=== PATIENT | female | born 1950 | race Caucasian/White ===

== ENCOUNTER 2018-04-03 07:31 | Day surgery (SDC) | payer MEDICARE ==
[~2018-04-03 07:31] MED LIST: Lactated Ringers 1,000 ML IV SCH; Sodium Chloride 0.9% 10 ML Syringe FLUSH PRN; cefOXitin 2 GM in Sodium Chloride 0.9% 100 ML IV ONE
[2018-04-03] MEDS ORDERED: cefOXitin 2 GM Vial IVPUSH ONE (08:00)
[2018-04-03] MEDS ORDERED: Hetastarch in NS 500 ML IV ONE (09:00)
[2018-04-03] MEDS ORDERED: Sugammadex Sodium 200 MG/2 ML VIAL IV ONE (09:00)
[2018-04-03] MEDS ORDERED: Rocuronium 100 MG/10 ML MDV IV ONE (09:00)
[2018-04-03] MEDS ORDERED: Lactated Ringers 1,000 ML IV ONE (09:00)
[2018-04-03] MEDS ORDERED: ePHEDrine 50 MG/ML SDV IV ONE (09:00)
[2018-04-03] MEDS ORDERED: Glycopyrrolate 0.2 MG/ML 5 ML MDV IV ONE (09:00)
[2018-04-03] MEDS ORDERED: Ketorolac 30 MG/ML SDV IVPUSH ONE (09:00)
[2018-04-03] MEDS ORDERED: Midazolam 1 MG/ML 2 ML SDV IV ONE (09:00)
[2018-04-03] MEDS ORDERED: fentaNYL 100 MCG/2 ML SDV IV ONE (09:00)
[2018-04-03] MEDS ORDERED: Propofol 200 MG/20 ML SDV IV ONE (09:00)
[2018-04-03] MEDS ORDERED: Succinylcholine 200 MG/10 ML MDV IV ONE (09:00)
[2018-04-03] MEDS ORDERED: Ondansetron 4 MG/2 ML SDV IVPUSH ONE (09:00)
[2018-04-03] MEDS ORDERED: Dexamethasone 4 MG/ML 5 ML MDV IVPUSH ONE (09:00)
[2018-04-03] MEDS ORDERED: Lidocaine 2% 100 MG/5 ML Syringe IVPUSH ONE (09:00)
[2018-04-03] MEDS ORDERED: Lidocaine 1% with EPINEPHrine 1:100,000 20 ML MDV ONE (09:26)
[2018-04-03] MEDS ORDERED: Bupivacaine 0.5% 30 ML SDV ONE (09:26)
--- NOTE | 2018-04-03 09:56 | PCM.OPNOTE ---
- General Post-Op/Procedure Note Date of Surgery/Procedure: 04/03/18 Operative Procedure(s): lap cholecystectomy Findings: critical view obtained fatty liver noted. Pre Op Diagnosis: sx gallstones Post-Op Diagnosis: Same Anesthesia Technique: General ET Tube, Local (7 ml 1 % lido with epi/0.5% buvipicaine) Primary Surgeon: Chris Hancock Anesthesia Provider: Erica Sherman Pathology: gallbladder and contents Complications: None Condition: Good Free Text/Narrative:: see dictation
--- NOTE | 2018-04-03 10:22 | OR ---
DATE OF OPERATION: 04/03/2018 SURGEON: Chris Hancock MD PROCEDURE PERFORMED: Laparoscopic cholecystectomy. PREOPERATIVE DIAGNOSIS: Symptomatic cholelithiasis without obstruction or infection. POSTOPERATIVE DIAGNOSIS: Symptomatic cholelithiasis without obstruction or infection. INDICATIONS FOR PROCEDURE: This is a 68-year-old white female who is referred with right upper quadrant abdominal pain and findings of gallstones. Her history and exam were consistent with symptomatic cholelithiasis. She was offered and accepted a laparoscopic cholecystectomy. DESCRIPTION OF PROCEDURE: After an excellent general anesthetic was administered via endotracheal tube, the patient was prepped and draped in usual sterile manner. A grand total of 7 mL of 1:1 mixture of 1% lidocaine with epinephrine and 0.5% bupivacaine was used to infiltrate our trocar sites. We started at the level of approximately 2 cm above the umbilicus. Small incision was then made with a #15 scalpel blade. Blunt dissection was carried out exposing the midline fascia. Two stay sutures of 0 Vicryl were placed on the inside of the midline. The fascia was incised, and the abdominal cavity was entered sharply. After digital palpation to ensure no adhesions, 10.5 mm Elizabeth trocar was inserted. The patient's abdomen was insufflated to 15 mmHg. When using carbon dioxide, the patient was then placed in reverse Trendelenburg with an airplane to the left. Three 5 mm ports were placed, 1 in the midline epigastrium and 2 below the right costal margin at the approximate level of the midclavicular and anterior axillary line. The gallbladder was grasped and retracted in a cephalad fashion. The infundibulum was grasped and retracted. Blunt dissection was carried out exposing the cystic duct and cystic artery. After obtaining the critical view, 2 clips were placed proximally on both these structures and 1 distally and transected. L-hook cautery dissection was used to dissect the gallbladder from the gallbladder fossa. Specimen was passed to the specimen bag and delivered out through the umbilical port. The area was irrigated. After ensuring excellent hemostasis, the trocars were removed under direct visualization. The periumbilical incision was closed with a figure-of- eight 0 Vicryl. Buchanan were used to close the skin. Needle, sponge, and instrument counts were reported as correct. The patient was taken to recovery room in good condition. /[id number] COOKIE/ARIS
[2018-04-03] MEDS ORDERED: Acetaminophen/HYDROcodone 325-5 MG Tab PO ONE (10:51)
== END 2018-04-03 11:39 | disposition home or self-care (01) ==
LOC: FB.SDS 07:31
PROVIDERS: ATTEND Surgery
DX: K80.10 Calculus of gallbladder with chronic cholecystitis without obstruction (principal); I10 Essential (primary) hypertension; E11.9 Type 2 diabetes mellitus without complications; E66.9 Obesity, unspecified; Z68.38 Body mass index [BMI] 38.0-38.9, adult; E03.9 Hypothyroidism, unspecified; Z87.891 Personal history of nicotine dependence; Z79.84 Long term (current) use of oral hypoglycemic drugs; Z79.899 Other long term (current) drug therapy; Z88.0 Allergy status to penicillin
CPT/HCPCS: 00790; 47562; 82962; 88304; A9270; C9399; J0330; J0694; J1100; J1885; J2001; J2250; J2405; J2704; J3010; J3490; J7120

== ENCOUNTER 2020-02-27 02:45 | Observation (INO) | payer MEDICARE ==
[2020-02-27] MEDS ORDERED: Sodium Chloride 0.9% 10 ML Syringe FLUSH PRN (03:21)
[2020-02-27] MEDS ORDERED: Atropine/Diphenoxylate 0.025-2.5 MG Tab PO ONE (03:26)
[2020-02-27] MEDS ORDERED: Ondansetron 4 MG/2 ML SDV IVPUSH ONE (03:36)
--- NOTE | 2020-02-27 03:49 | EDM.PDOC ---
ED HPI GENERAL MEDICAL PROBLEM - General Chief Complaint: Gastrointestinal Problem Stated Complaint: ABDOMINAL PAIN Time Seen by Provider: 02/27/20 02:50 Source of Information: Reports: Patient, Family History Limitations: Reports: No Limitations - History of Present Illness INITIAL COMMENTS - FREE TEXT/NARRATIVE: Patient presented to the ED because of N/V/D for the past 6 days. The diarrhea is mostly watery, non-bloody, non-mucoid. There is no associated fever/chills, cough or cold symptoms. There is no recent use of antibiotics. She jhas been to the clinic twice this week for IVF hydration but she still couldn't keep anything down. 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 - Related Data Allergies Allergy/AdvReac Type Severity Reaction Status Date / Time Penicillins Allergy Hives Verified 02/27/20 03:04 Home Meds: Home Meds Levothyroxine 112 mcg PO DAILY 04/02/18 [History] Verapamil [Calan] 120 mg PO BEDTIME 04/02/18 [History] metFORMIN [Glucophage] 850 mg PO BIDMEALS 04/02/18 [History] Aspirin 162 mg PO BEDTIME 02/27/20 [History] Cholestyramine/Sucrose [Cholestyramine] 4 gm DAILY 02/27/20 [History] Docusate Sodium [Colace] 100 mg PO BID PRN 02/27/20 [History] Losartan [Cozaar] 50 mg PO BEDTIME 02/27/20 [History] Ondansetron [Zofran ODT] 4 mg Q4H PRN 02/27/20 [History] Past Medical History HEENT History: Reports: Impaired Vision Cardiovascular History: Reports: Hypertension Respiratory History: Reports: None Gastrointestinal History: Reports: Colon Polyp Genitourinary History: Reports: None 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: Musculoskeletal History: Reports: Fracture Neurological History: Reports: None Psychiatric History: Reports: None Endocrine/Metabolic History: Reports: Diabetes, Type II, Hypothyroidism Hematologic History: Reports: None Immunologic History: Reports: None Oncologic (Cancer) History: Reports: None Dermatologic History: Reports: None - Past Surgical History Head Surgeries/Procedures: Reports: None HEENT Surgical History: Reports: None Cardiovascular Surgical History: Reports: None Respiratory Surgical History: Reports: None GI Surgical History: Reports: Colonoscopy Female Surgical History: Reports: None Endocrine Surgical History: Reports: None Neurological Surgical History: Reports: None Musculoskeletal Surgical History: Reports: None Oncologic Surgical History: Reports: None Dermatological Surgical History: Reports: None Social & Family History - Caffeine Use Caffeine Use: Reports: Coffee, Soda ED ROS GENERAL - Review of Systems Review Of Systems: See Below Constitutional: Reports: No Symptoms HEENT: Reports: No Symptoms Respiratory: Reports: No Symptoms Cardiovascular: Reports: No Symptoms Endocrine: Reports: No Symptoms GI/Abdominal: Reports: Diarrhea, Nausea, Vomiting. Denies: Abdominal Pain : Reports: No Symptoms Musculoskeletal: Reports: No Symptoms Skin: Reports: No Symptoms Neurological: Reports: No Symptoms Psychiatric: Reports: No Symptoms Hematologic/Lymphatic: Reports: No Symptoms ED EXAM, GI/ABD - Physical Exam Exam: See Below Exam Limited By: No Limitations General Appearance: Alert, No Apparent Distress Ears: Normal External Exam, Normal Canal Nose: Normal Inspection, Normal Mucosa Throat/Mouth: Normal Inspection, Normal Lips, Normal Teeth Head: Atraumatic, Normocephalic Neck: Normal Inspection, Supple, Non-Tender Respiratory/Chest: No Respiratory Distress, Lungs Clear, Normal Breath Sounds Cardiovascular: Normal Peripheral Pulses, No Edema, Tachycardia GI/Abdominal Exam: Soft, Non-Tender, No Distention, Abnormal Bowel Sounds. No: Guarding Back Exam: Normal Inspection, Full Range of Motion Extremities: Normal Inspection, Normal Range of Motion, Non-Tender Neurological: Alert, Oriented, CN II-XII Intact, Normal Cognition Psychiatric: Normal Affect Skin Exam: Warm Course - Vital Signs Text/Narrative:: Labs/EKG was reviewed with patient and her NS 1 L bolus Lomotil 2 tabs po x1 dose Zofran 4 mg IV x1 Verapamil 120 mg po x1 Last Recorded V/S: Last Vital Signs Temp 37.3 C 02/27/20 02:45 Pulse 118 H 02/27/20 02:45 Resp 26 H 02/27/20 02:45 BP 111/66 02/27/20 02:45 Pulse Ox 4 L 02/27/20 02:45 - Orders/Labs/Meds Orders: Active Orders 24 hr Category Date Time Status Patient Status [ADT] Routine ADT 02/27/20 03:52 Ordered EKG Documentation Completion [RC] ASDIRECTED Care 02/27/20 03:42 Active Height and Weight [RC] DAILY Care 02/27/20 03:52 Ordered Intake and Output [RC] QSHIFT Care 02/27/20 03:56 Ordered Oxygen Therapy [RC] PRN Care 02/27/20 03:52 Ordered Pulse Oximetry [RC] PRN Care 02/27/20 03:56 Ordered Up With Assistance [RC] ASDIRECTED Care 02/27/20 03:52 Ordered VTE/DVT Education [RC] Per Unit Routine Care 02/27/20 03:52 Ordered Vital Signs [RC] Q4H Care 02/27/20 03:52 Ordered Heart Healthy Diet [DIET] Diet 02/27/20 Breakfast Ordered C DIFFICILE AG/TOXIN W/REFLEX [RM] Stat Lab 02/27/20 03:23 Ordered OVA + PARASITE EXAM Stat Lab 02/27/20 03:23 Ordered STOOL CULTURE Stat Lab 02/27/20 03:23 Ordered UA W/MICROSCOPIC [URIN] Stat Lab 02/27/20 03:21 Ordered Atropine/Diphenoxylate [Lomotil 0.025-2.5 MG] Med 02/27/20 03:59 Ordered 2 tab PO QID PRN Cholestyramine/Sucrose [Cholestyramine Packet] Med 02/27/20 09:00 Ordered 4 gm PO DAILY Levothyroxine Med 02/27/20 09:00 Ordered 112 mcg PO DAILY Losartan [Cozaar] Med 02/27/20 21:00 Ordered 50 mg PO BEDTIME NS + KCl 20mEq/L [Normal Saline with 20 mEq KCl] 3,000 Med 02/27/20 04:00 Ordered ml IV ASDIRECTED Ondansetron [Zofran] Med 02/27/20 04:00 Ordered 4 mg IVPUSH Q4H Sodium Chloride 0.9% [Saline Flush] Med 02/27/20 03:21 Active 10 ml FLUSH ASDIRECTED PRN Verapamil [Calan] Med 02/27/20 21:00 Ordered 120 mg PO BEDTIME Saline Lock Insert [OM.PC] Routine Oth 02/27/20 03:21 Ordered Sequential Compression Device [OM.PC] Per Unit Routine Oth 02/27/20 03:57 Ordered Resuscitation Status Routine Resus Stat 02/27/20 03:52 Ordered EKG 12 Lead [EK] Routine Ther 02/27/20 03:41 Ordered Medication Orders Cholestyramine Resin (Cholestyramine Packet) 4 gm PO DAILY ANDI Diphenoxylate HCl/Atropine (Lomotil 0.025-2.5 Mg) 2 tab PO QID PRN PRN Reason: Diarrhea Potassium Chloride/Sodium Chloride (Normal Saline With 20 Meq Kcl) 3,000 mls @ 150 mls/hr IV ASDIRECTED ANDI Levothyroxine Sodium (Levothyroxine) 112 mcg PO DAILY ANDI Losartan Potassium (Cozaar) 50 mg PO BEDTIME ANDI Ondansetron HCl (Zofran) 4 mg IVPUSH Q4H ANDI Sodium Chloride (Saline Flush) 10 ml FLUSH ASDIRECTED PRN PRN Reason: Keep Vein Open Verapamil HCl (Calan) 120 mg PO BEDTIME ANDI Labs: Laboratory Tests 02/27/20 02/27/20 02/27/20 Range/Units 03:00 03:00 03:00 WBC 5.2 (4.5-12.0) X10-3/uL RBC 4.19 (3.23-5.20) x10(6)uL Hgb 11.8 (11.5-15.5) g/dL Hct 36.4 (30.0-51.3) % MCV 86.8 (80-96) fL MCH 28.1 (27.7-33.6) pg MCHC 32.3 (32.2-35.4) g/dL RDW 15.4 (11.5-15.5) % Plt Count 103 L (125-369) X10(3)uL MPV 8.2 (7.4-10.4) fL Add Manual Diff Yes Neutrophils % (Manual) 87 H (46-82) % Band Neutrophils % 2 (0-6) % Lymphocytes % (Manual) 4 L (13-37) % Monocytes % (Manual) 7 (4-12) % Sodium 133 L (135-145) mmol/L Potassium 3.4 L (3.5-5.3) mmol/L Chloride 100 (100-110) mmol/L Carbon Dioxide 18 L (21-32) mmol/L BUN 40 H (7-18) mg/dL Creatinine 2.3 H* (0.55-1.02) mg/dL Est Cr Clr Drug Dosing 21.50 mL/min Estimated GFR (MDRD) 21 L (>60) BUN/Creatinine Ratio 17.4 (9-20) Glucose 123 H (80-116) mg/dL Calcium 8.4 L (8.6-10.2) mg/dL Total Bilirubin 1.4 H (0.1-1.3) mg/dL AST 31 H (5-25) IU/L ALT 12 (12-36) U/L Alkaline Phosphatase 175 H (56-112) IU/L Total Protein 6.4 (6.0-8.0) g/dL Albumin 2.1 L (3.2-4.6) g/dL Globulin 4.3 g/dL Albumin/Globulin Ratio 0.5 TSH, Ultra Sensitive 1.50 (0.36-3.74) IU/mL Meds: Medications Generic Name Dose Route Start Last Admin Trade Name Freq PRN Reason Stop Dose Admin Cholestyramine Resin 4 gm 02/27/20 09:00 Cholestyramine Packet PO DAILY ANDI Diphenoxylate HCl/Atropine 2 tab 02/27/20 03:59 Lomotil 0.025-2.5 Mg PO QID PRN Diarrhea Potassium Chloride/Sodium Chloride 3,000 mls @ 150 mls/hr 02/27/20 04:00 Normal Saline With 20 Meq Kcl IV ASDIRECTED ANDI Levothyroxine Sodium 112 mcg 02/27/20 09:00 Levothyroxine PO DAILY ANDI Losartan Potassium 50 mg 02/27/20 21:00 Cozaar PO BEDTIME ANDI Ondansetron HCl 4 mg 02/27/20 04:00 Zofran IVPUSH Q4H ANDI Sodium Chloride 10 ml 02/27/20 03:21 Saline Flush FLUSH ASDIRECTED PRN Keep Vein Open Verapamil HCl 120 mg 02/27/20 21:00 Calan PO BEDTIME ANDI Discontinued Medications Generic Name Dose Route Start Last Admin Trade Name Freq PRN Reason Stop Dose Admin Diphenoxylate HCl/Atropine 2 tab 02/27/20 03:26 02/27/20 03:42 Lomotil 0.025-2.5 Mg PO 02/27/20 03:27 2 tab ONETIME ONE Administration Ondansetron HCl 4 mg 02/27/20 03:36 02/27/20 03:43 Zofran IVPUSH 02/27/20 03:37 4 mg ONETIME ONE Administration Verapamil HCl 180 mg 02/27/20 03:50 Calan Sr PO 02/27/20 03:51 NOW STA Departure - Departure Time of Disposition: 04:00 Disposition: Refer to Observation Condition: Good Clinical Impression: Acute gastroenteritis, Dehydration, Hyponatremia, Hypokalemia, RAJIV (acute kidney injury) - Discharge Information Referrals: Josh Darby MD [Primary Care Provider] - Forms: ED Department Discharge Sepsis Event Note (ED) - Evaluation Sepsis Screening Result: Possible Sepsis Risk - Focused Exam Vital Signs: Vital Signs Temp Pulse Resp BP Pulse Ox 02/27/20 02:45 37.3 C 118 H 26 H 111/66 4 L - My Orders Last 24 Hours: My Active Orders 02/27/20 03:21 UA W/MICROSCOPIC [URIN] Stat Sodium Chloride 0.9% [Saline Flush] 10 ml FLUSH ASDIRECTED PRN Saline Lock Insert [OM.PC] Routine 02/27/20 03:23 C DIFFICILE AG/TOXIN W/REFLEX [RM] Stat OVA + PARASITE EXAM Stat STOOL CULTURE Stat 02/27/20 03:41 EKG 12 Lead [EK] Routine 02/27/20 03:42 EKG Documentation Completion [RC] ASDIRECTED 02/27/20 03:52 Patient Status [ADT] Routine Height and Weight [RC] DAILY Oxygen Therapy [RC] PRN Up With Assistance [RC] ASDIRECTED VTE/DVT Education [RC] Per Unit Routine Vital Signs [RC] Q4H Resuscitation Status Routine 02/27/20 03:56 Intake and Output [RC] QSHIFT Pulse Oximetry [RC] PRN 02/27/20 03:57 Sequential Compression Device [OM.PC] Per Unit Routine 02/27/20 03:59 Atropine/Diphenoxylate [Lomotil 0.025-2.5 MG] 2 tab PO QID PRN 02/27/20 04:00 NS + KCl 20mEq/L [Normal Saline with 20 mEq KCl] 3,000 ml IV ASDIRECTED Ondansetron [Zofran] 4 mg IVPUSH Q4H 02/27/20 Breakfast Heart Healthy Diet [DIET] 02/27/20 09:00 Cholestyramine/Sucrose [Cholestyramine Packet] 4 gm PO DAILY Levothyroxine 112 mcg PO DAILY 02/27/20 21:00 Losartan [Cozaar] 50 mg PO BEDTIME Verapamil [Calan] 120 mg PO BEDTIME - Assessment/Plan Last 24 Hours: My Active Orders 02/27/20 03:21 UA W/MICROSCOPIC [URIN] Stat Sodium Chloride 0.9% [Saline Flush] 10 ml FLUSH ASDIRECTED PRN Saline Lock Insert [OM.PC] Routine 02/27/20 03:23 C DIFFICILE AG/TOXIN W/REFLEX [RM] Stat OVA + PARASITE EXAM Stat STOOL CULTURE Stat 02/27/20 03:41 EKG 12 Lead [EK] Routine 02/27/20 03:42 EKG Documentation Completion [RC] ASDIRECTED 02/27/20 03:52 Patient Status [ADT] Routine Height and Weight [RC] DAILY Oxygen Therapy [RC] PRN Up With Assistance [RC] ASDIRECTED VTE/DVT Education [RC] Per Unit Routine Vital Signs [RC] Q4H Resuscitation Status Routine 02/27/20 03:56 Intake and Output [RC] QSHIFT Pulse Oximetry [RC] PRN 02/27/20 03:57 Sequential Compression Device [OM.PC] Per Unit Routine 02/27/20 03:59 Atropine/Diphenoxylate [Lomotil 0.025-2.5 MG] 2 tab PO QID PRN 02/27/20 04:00 NS + KCl 20mEq/L [Normal Saline with 20 mEq KCl] 3,000 ml IV ASDIRECTED Ondansetron [Zofran] 4 mg IVPUSH Q4H 02/27/20 Breakfast Heart Healthy Diet [DIET] 02/27/20 09:00 Cholestyramine/Sucrose [Cholestyramine Packet] 4 gm PO DAILY Levothyroxine 112 mcg PO DAILY 02/27/20 21:00 Losartan [Cozaar] 50 mg PO BEDTIME Verapamil [Calan] 120 mg PO BEDTIME
[2020-02-27] MEDS ORDERED: Verapamil 180 MG Tab.ER PO STA (03:50)
[2020-02-27] MEDS ORDERED: Atropine/Diphenoxylate 0.025-2.5 MG Tab PO PRN (03:59)
[2020-02-27] MEDS ORDERED: NS IV SCH (04:00)
[2020-02-27] MEDS ORDERED: KCL IV SCH (04:00)
[2020-02-27] MEDS ORDERED: Ondansetron 4 MG/2 ML SDV IVPUSH SCH (04:00)
[2020-02-27] MEDS ORDERED: Ciprofloxacin in D5W 400 MG in Premix Bag 1 BAG IV SCH ×2 (05:00)
[2020-02-27] MEDS ORDERED: Ondansetron 4 MG/2 ML SDV IVPUSH PRN (05:05)
[2020-02-27] MEDS: Levothyroxine 112 MCG Tab PO SCH (10:53)
[2020-02-27] MEDS: Cholestyramine/Sucrose Powder 4 GM Packet PO SCH (11:13)
--- NOTE | 2020-02-27 12:46 | HP ---
ADMISSION DATE: 02/27/2020 CHIEF COMPLAINT: Weakness, dehydration, UTI. HISTORY OF PRESENT ILLNESS: Ms. Hodges is a 70-year-old woman from [place], [place] with a history of dumping syndrome post cholecystectomy, hypertension, hypothyroidism, and type 2 diabetes, on metformin. According to the patient, she developed diarrhea approximately 6 days ago. This was associated with vomiting. She was not exposed to anybody with similar illnesses and other people around her that were eating the same food had no similar symptoms. She became quite dehydrated and weak from this and received IV fluids 2 days in a row as an outpatient in the clinic and then was admitted through the emergency room early this morning because of extreme weakness, nausea, and a significantly elevated serum creatinine. Dr. German started her on IV fluids overnight as well as potassium replacement for mild hypokalemia. She states that she feels better now this morning. PAST MEDICAL HISTORY: Cholecystectomy approximately 2 years ago, post dumping syndrome since that. She has type 2 diabetes, hypertension. She is 2, para 2 with normal deliveries. No history of jaundice, transfusions, or hepatitis. She was admitted at age 18 for pneumonia and otherwise had no significant medical problems. MEDICATIONS: 1. Cholestyramine 4 g one packet daily. 2. Levothyroxine 112 mcg daily. 3. Losartan 50 mg at bedtime. 4. Verapamil SR 180 one daily. ALLERGIES: Penicillin, she developed hives when she received this IV at age 18 for pneumonia. HABITS: Nonsmoker for the past 40 years. Occasional glass a wine. Decaf beverages. FAMILY AND SOCIAL HISTORY: The patient's father at age 91 of CHF. Mother at age 91 of Parkinson disease. She has been for 51 years. Has 2 children, ages 47 and 44 as well as 5 grandchildren. 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 REVIEW OF SYSTEMS: GENERAL: Negative for seizures, syncope, or recent severe weight change. SKIN: Negative for rash. HEENT: No recent change in hearing or vision. No sore throat or URI. RESPIRATORY SYSTEMS: No cough or purulent sputum. No chest pain or palpitations. ABDOMEN: She has had some mild lower abdominal discomfort, she attributes to urinary tract infection. EXTREMITIES: No joint inflammation, swelling, skin rash. PHYSICAL EXAMINATION: GENERAL: She is alert, comfortable, good historian. VITAL SIGNS: Blood pressure 94/52, pulse 86 and regular, respirations 18, O2 saturation 96% on 2 L nasal cannula. Weight 232 pounds. SKIN: Anicteric. Warm and dry without rash. HEENT: Show pupils to be equal and reactive. Oropharynx is clear. Mouth is dry. LUNGS: Clear to the upper lung layton. She has mild dry rales at both bases. HEART: Regular without murmur, rub, or gallop. ABDOMEN: Obese, soft, nontender. In the upper abdomen, she has very slight tenderness in right lower quadrant and suprapubic area. No mass, guarding, or rebound tenderness. EXTREMITIES: Show no edema. NEUROLOGIC: Mental status is intact. Motor exam is symmetric. LABORATORY DATA: White count 5200, hemoglobin 11.8, platelets 103, mild left shift with 87 segs, 2 bands, 4 lymphocytes, 7 monos. Sodium 133, potassium 3.4, BUN 40, creatinine 2.3. AST 31, alkaline phosphatase 175. Urinalysis shows positive nitrites, 10 to 20 red cells, 10 to 20 white cells, large amount of occult blood. ASSESSMENT: 1. Dehydration and weakness secondary to vomiting and diarrhea. 2. Acute renal insufficiency, question underlying renal insufficiency. 3. Gastroenteritis syndrome. 4. Hypokalemia. 5. Type 2 diabetes. 6. Hypertension. 7. Post-cholecystectomy dumping syndrome. PLAN: She received 1 dose of IV Cipro. We will change this to oral cephalexin for UTI. We will recheck her labs and urine in the morning. Continue IV fluids and anti-diarrheal medications. Anticipate short stay with her return to home when able. /[id number] RO/MODL
[2020-02-27] MEDS ORDERED: Losartan 50 MG Tab *PTOM PO SCH (21:00)
[2020-02-28] MEDS: NS + KCl 20mEq/L 1,000 ML IV SCH ×3 (04:37→20:52)
[2020-02-28] MEDS: Levothyroxine 112 MCG Tab PO SCH (08:33)
[2020-02-28] MEDS: Cholestyramine/Sucrose Powder 4 GM Packet PO SCH (08:34)
--- NOTE | 2020-02-28 11:38 | PN ---
DATE SEEN: 02/28/2020 HISTORY: Yessi is a 70-year-old woman with a history of hypertension, post cholecystectomy dumping syndrome, and hypothyroidism. She was admitted because of persistent diarrhea, nausea, vomiting, weakness, and acute renal insufficiency. On admission, her hemoglobin was 11.8, potassium 3.4, BUN 40, and creatinine 2.3. She was treated with IV fluid rehydration. She is receiving Azactam IV for urinary tract infection and oral diet is reintroduced gradually. The patient had an improved night with no nausea or vomiting. She has had no diarrhea for 24 hours. However, she still feels extremely weak and slightly short of breath when up and walking in the halls. PHYSICAL EXAMINATION: VITAL SIGNS: Blood pressure 106/56, pulse 89 and regular, respirations 18, O2 saturation 95% on room air, temperature 98.2, and weight 243 pounds. SKIN: Clear without rash. MOUTH: Dry. LUNGS: Clear. HEART: Regular. ABDOMEN: Obese, soft. No mass, guarding, or rebound. There is slight suprapubic tenderness to deep palpation. EXTREMITIES: Show no edema at the ankles. LABORATORY DATA: This morning, hemoglobin 10, potassium 3.9, BUN 36, and creatinine 2.0. ASSESSMENT: 1. Dehydration with acute renal insufficiency with possible underlying mild renal insufficiency. 2. Mild normocytic anemia. 3. Mild protein malnutrition with low albumin. 4. Urinary tract infection. PLAN: We will continue her IV Azactam today. Increase activity as tolerated. Recheck laboratories in a.m. and plan to discharge within 24 hours if able. /[id number] HALEY/ZACHL
[2020-02-29] MEDS: NS + KCl 20mEq/L 1,000 ML IV SCH (03:35)
[2020-02-29] MEDS: Levothyroxine 112 MCG Tab PO SCH (09:12)
[2020-02-29] MEDS: Cholestyramine/Sucrose Powder 4 GM Packet PO SCH (09:13)
[2020-03-01] MEDS ORDERED: cefTRIAXone 1 GM in Sodium Chloride 0.9% 50 ML IV ONE (08:08)
[2020-03-01] MEDS ORDERED: cefTRIAXone 1 GM Vial IVPUSH ONE (08:30)
[2020-03-01] MEDS: Levothyroxine 112 MCG Tab PO SCH (09:26)
[2020-03-01] MEDS: Cholestyramine/Sucrose Powder 4 GM Packet PO SCH (09:26)
--- NOTE | 2020-03-01 13:52 | DISCH ---
DISCHARGE DATE: 03/01/2020 PRIMARY FINAL DIAGNOSIS: Severe dehydration with acute renal insufficiency secondary to gastroenteritis, complicated with urinary tract infection. OTHER DIAGNOSES: 1. Post cholecystectomy. 2. Dumping syndrome. 3. Chronic hypothyroidism. 4. Hypertension. OPERATIONS: None. COMPLICATIONS: The patient had a slow recuperation starting with receiving IV fluids as an outpatient and continuing as an inpatient. SUMMARY: Ms. Hodges is a 70-year-old woman with the above medical problems, who developed nausea, vomiting, diarrhea as an outpatient. She received IV fluids for 2 days as an outpatient and because of continuing worsening of her symptoms, was admitted through the ER on 02/27/2020. She was treated with vigorous IV fluids, IV antibiotics, and labs were followed closely. BUN on admission 40 with a creatinine of 2.3 and a potassium of 3.4. The slowly corrected white count increased from 5000 to 15,000, hemoglobin dropped from 11.8 to 9.8 with normocytic red cells. By 03/01/2020, she was strong, eating up, walking, and anxious for discharge. A followup cathed urinalysis was done still showing pyuria with culture pending. Also pending are iron studies because of her anemia and final renal panel. She discharged to home in good condition to continue antibiotic with cephalexin 500 mg b.i.d. x4 days. We are going to discontinue her metformin, but have her continue her losartan 50 mg at bedtime, docusate 100 mg b.i.d., aspirin 81 mg daily, verapamil 120 mg at bedtime, levothyroxine 112 mcg daily, cholestyramine 4 g packet daily. She will have follow up discussion with Dr. Darby regarding other diabetic medication if needed. Of note, blood sugars here have been well controlled in the 80 to 120 range off metformin. /[id number] HALEY/ARIS
[2020-03-02 08:12] LABS: IRON BIND.CAP.(TIBC) 186 ug/dL (250-450); IRON SATURATION 12 % (15-55); IRON, SERUM 22 ug/dL (27-139); UIBC 164 ug/dL (118-369)
--- NOTE | 2020-03-26 15:38 | PN ---
DATE SEEN: 02/29/2020 HISTORY: Ms. Hodges is a 70-year-old woman who was admitted for weakness, dehydration, and diarrhea. She has been rehydrated with IV fluid. She is getting some appetite back today. She is on Azactam for urinary tract infection. The patient is receiving IV Azactam for urinary tract infection. PHYSICAL EXAMINATION: GENERAL: She is alert and comfortable. VITAL SIGNS: Stable. LUNGS: Clear. Respirations easy. HEART: Regular. ABDOMEN: Normal bowel sounds. Minimal tenderness in the lower abdomen with no guarding or rebound. LABORATORY DATA: This morning, white count 15,000 and hemoglobin 9.8 with slight left shift. ASSESSMENT: Dehydration, improving. BUN is 30 and creatinine is 1.6 today. We will continue IV fluid. Continue her Azactam for urinary tract infection. Recheck urinalysis and anticipate discharge within 24 to 48 hours if continue to improve. /[id number] HALEY/ARIS
== END 2020-03-01 08:19 | disposition home or self-care (01) ==
LOC: FB.ED 02:45 → FB.MS 03:58 → UNDOADMIN 03:58 → FB.MS 03:58 → UNDOADMOB 04:00 → OBSVTOIN 03-01 07:26 → INTOOBSV 03-01 07:26 → UNDODISIN 03-01 10:30
PROVIDERS: ADMIT Emergency Medicine; ATTEND Family Medicine
DX: N17.9 Acute kidney failure, unspecified (principal); E44.1 Mild protein-calorie malnutrition; E87.1 Hypo-osmolality and hyponatremia; N39.0 Urinary tract infection, site not specified; K52.9 Noninfective gastroenteritis and colitis, unspecified; E86.0 Dehydration; E03.9 Hypothyroidism, unspecified; I10 Essential (primary) hypertension; K91.1 Postgastric surgery syndromes; E11.9 Type 2 diabetes mellitus without complications; E87.6 Hypokalemia; H54.7 Unspecified visual loss; D64.9 Anemia, unspecified; Z79.82 Long term (current) use of aspirin; Z79.84 Long term (current) use of oral hypoglycemic drugs; Z88.0 Allergy status to penicillin; Z79.890 Hormone replacement therapy; Z79.899 Other long term (current) drug therapy; Z86.010 Personal history of colon polyps; Z90.49 Acquired absence of other specified parts of digestive tract; Z68.38 Body mass index [BMI] 38.0-38.9, adult
CPT/HCPCS: 36415; 51701; 80048; 80053; 80069; 81001; 82272; 83540; 83550; 84443; 85018; 85025; 87045; 87046; 87086; 87088; 87177; 87186; 87209; 87230; 87427; 93005; 96365; 96366; 96368; 96375; 96376; 99217; 99219; 99224; 99225; 99285; A9270; G0378; J0696; J0744; J2405; J3480; J3490; 96361; 96374

== ENCOUNTER 2020-08-30 23:08 | Emergency (ER) | payer MEDICARE ==
[2020-08-30] MEDS ORDERED: Ondansetron 4 MG/2 ML SDV IVPUSH ONE (23:15)
[2020-08-30] MEDS ORDERED: Sodium Chloride 0.9% 1,000 ML IV SCH (23:15)
--- NOTE | 2020-08-31 00:45 | EDM.PDOC ---
ED HPI GENERAL MEDICAL PROBLEM - General Chief Complaint: Gastrointestinal Problem Stated Complaint: VOMITTING Time Seen by Provider: 08/30/20 23:20 Source of Information: Reports: Patient History Limitations: Reports: No Limitations - History of Present Illness INITIAL COMMENTS - FREE TEXT/NARRATIVE: Patient presented to the ED because of N/V, constipation for 2 days. She usually have a bowel movement daily. There is no abdominal pain, no fever,chills, cough or cold. She was also diagnosed with UTI today and started on keflex 500 mg PO BID. - Related Data Allergies Allergy/AdvReac Type Severity Reaction Status Date / Time Penicillins Allergy Hives Verified 02/27/20 03:04 Home Meds: Home Meds Levothyroxine 112 mcg PO DAILY 04/02/18 [History] Verapamil [Calan] 120 mg PO BEDTIME 04/02/18 [History] Aspirin 162 mg PO BEDTIME 02/27/20 [History] Cholestyramine/Sucrose [Cholestyramine] 4 gm DAILY 02/27/20 [History] Docusate Sodium [Colace] 100 mg PO BID PRN 02/27/20 [History] Losartan [Cozaar] 50 mg PO BEDTIME 02/27/20 [History] cephALEXin [Cephalexin] 500 mg PO BID #8 tablet 03/01/20 [Rx] KCl/Na Sulf,Bicarb,Cl/PEG 3351 [GoLytely] 4,000 ml PO ONETIME #1 bottle 08/31/20 [Rx] Ondansetron [Zofran ODT] 4 mg PO Q4H PRN #5 tab.dis 08/31/20 [Rx] Past Medical History HEENT History: Reports: Impaired Vision Cardiovascular History: Reports: Hypertension Respiratory History: Reports: None Gastrointestinal History: Reports: Colon Polyp Genitourinary History: Reports: None [employer] 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 History: Musculoskeletal History: Reports: Fracture Other Musculoskeletal History: hx fx R fibula Neurological History: Reports: None Psychiatric History: Reports: None Endocrine/Metabolic History: Reports: Diabetes, Type II, Hypothyroidism Hematologic History: Reports: None Immunologic History: Reports: None Oncologic (Cancer) History: Reports: None Dermatologic History: Reports: None - Infectious Disease History Infectious Disease History: Reports: Chicken Pox, Measles, Mumps - Past Surgical History Head Surgeries/Procedures: Reports: None HEENT Surgical History: Reports: None Cardiovascular Surgical History: Reports: None Respiratory Surgical History: Reports: None GI Surgical History: Reports: Colonoscopy Female Surgical History: Reports: None Endocrine Surgical History: Reports: None Neurological Surgical History: Reports: None Musculoskeletal Surgical History: Reports: None Oncologic Surgical History: Reports: None Dermatological Surgical History: Reports: None Social & Family History - Family History Family Medical History: No Pertinent Family History - Caffeine Use Caffeine Use: Reports: Soda ED ROS GENERAL - Review of Systems Review Of Systems: See Below Constitutional: Reports: No Symptoms HEENT: Reports: No Symptoms Respiratory: Reports: No Symptoms Cardiovascular: Reports: No Symptoms Endocrine: Reports: No Symptoms GI/Abdominal: Reports: Constipation : Reports: No Symptoms Musculoskeletal: Reports: No Symptoms Skin: Reports: No Symptoms Neurological: Reports: No Symptoms Psychiatric: Reports: No Symptoms Hematologic/Lymphatic: Reports: No Symptoms ED EXAM, GI/ABD - Physical Exam Exam: See Below Exam Limited By: No Limitations General Appearance: Alert, No Apparent Distress Ears: Normal External Exam, Normal Canal Nose: Normal Inspection, Normal Mucosa Throat/Mouth: Normal Inspection, Normal Lips, Normal Teeth Head: Atraumatic, Normocephalic Neck: Normal Inspection, Supple, Non-Tender, Full Range of Motion Respiratory/Chest: No Respiratory Distress, Lungs Clear, Normal Breath Sounds Cardiovascular: Normal Peripheral Pulses, Regular Rate, Rhythm, No Edema, No Gallop GI/Abdominal Exam: Normal Bowel Sounds, Soft, Non-Tender, No Organomegaly Back Exam: Normal Inspection, Full Range of Motion Neurological: Alert, Oriented, CN II-XII Intact, Normal Cognition, Normal Gait, Normal Reflexes, No Motor/Sensory Deficits Psychiatric: Normal Affect Skin Exam: Warm Course - Vital Signs Text/Narrative:: Labs/abd xray result was discussed with patient NS 1 L bolus Last Recorded V/S: Last Vital Signs Temp 37.3 C 08/30/20 23:15 Pulse 94 08/30/20 23:15 Resp 17 08/30/20 23:15 BP 180/64 H 08/30/20 23:15 Pulse Ox 94 L 08/30/20 23:15 - Orders/Labs/Meds Orders: Active Orders 24 hr Category Date Time Status Abdomen 2V AP Flat Upright [CR] Stat Exams 08/30/20 23:16 Taken Labs: Laboratory Tests 08/30/20 08/30/20 Range/Units 23:25 23:25 WBC 6.6 (3.0-10.3) x10-3/uL RBC 4.28 (3.60-5.20) x10(6)uL Hgb 12.1 (11.4-15.5) g/dL Hct 37.2 (34.2-48.2) % MCV 86.8 (76.7-100.5) fL MCH 28.2 (23.9-33.9) pg MCHC 32.4 (31.9-34.8) g/dL RDW 15.5 (12.3-16.5) % Plt Count 166 (151-488) x10(3)uL MPV 7.4 (7.1-12.4) fL Neut % (Auto) 91.0 H (30.8-76.2) % Lymph % (Auto) 5.8 L (18.4-52.1) % Eaton % (Auto) 2.9 L (4.4-15.7) % Eos % (Auto) 0.0 L (0.6-8.1) % Baso % (Auto) 0.3 (0.2-1.5) % Neut # (Auto) 6.0 (1.5-6.3) x10-3/uL Lymph # (Auto) 0.4 L (1.0-4.4) x10-3/uL Eaton # (Auto) 0.2 L (0.3-1.0) x10-3/uL Eos # (Auto) 0.0 (0.0-0.8) x10-3/uL Baso # (Auto) 0.0 (0.0-0.1) x10-3/uL Sodium 132 L (135-145) mmol/L Potassium 3.8 (3.5-5.3) mmol/L Chloride 97 L D (100-110) mmol/L Carbon Dioxide 22 (21-32) mmol/L BUN 27 H (7-18) mg/dL Creatinine 1.9 H (0.55-1.02) mg/dL Est Cr Clr Drug Dosing TNP Estimated GFR (MDRD) 26 L (>60) BUN/Creatinine Ratio 14.2 (9-20) Glucose 159 H (80-116) mg/dL Calcium 8.9 (8.6-10.2) mg/dL Meds: Medications Discontinued Medications Generic Name Dose Route Start Last Admin Trade Name Josse PRN Reason Stop Dose Admin Sodium Chloride 1,000 mls @ 999 mls/hr 08/30/20 23:15 08/30/20 23:30 Normal Saline IV 999 mls/hr ASDIRECTED ANDI Administration Ondansetron HCl 4 mg 08/30/20 23:15 08/30/20 23:30 Zofran IVPUSH 08/30/20 23:16 4 mg ONETIME ONE Administration Departure - Departure Time of Disposition: 01:45 Disposition: Home, Self-Care 01 Condition: Good Clinical Impression: Constipation, Dehydration - Discharge Information Prescriptions: KCl/Na Sulf,Bicarb,Cl/PEG 3351 [GoLytely] 4,000 ml PO ONETIME #1 bottle Ondansetron [Zofran ODT] 4 mg PO Q4H PRN #5 tab.dis PRN Reason: Nausea Instructions: Constipation, Adult, [id number], Dehydration, Adult, [id number] Referrals: PCP,None [Primary Care Provider] - Forms: ED Department Discharge Additional Instructions: Please read discharge instructions on constipation and dehydration Take Zofran 4 mg ODT 15 minutes before you start taking the golytely If you still feel nauseated while taking the golytely you can take an extra dose of the zofran/odansetron Take the golytely as directed. Read the instructions on how to take it. After having a bowel movement drink 2 liters of water daily so you will not be dehydrated Follow up with your doctor if your constipation is not resolved with the golytely Sepsis Event Note (ED) - Evaluation Sepsis Screening Result: No Definite Risk - Focused Exam Vital Signs: Vital Signs Temp Pulse Resp BP Pulse Ox 08/30/20 23:15 37.3 C 94 17 180/64 H 94 L - My Orders Last 24 Hours: My Active Orders 08/30/20 23:16 Abdomen 2V AP Flat Upright [CR] Stat - Assessment/Plan Last 24 Hours: My Active Orders 08/30/20 23:16 Abdomen 2V AP Flat Upright [CR] Stat
--- NOTE | 2020-08-31 10:58 | CR ---
INDICATION: Constipation. ABDOMEN, TWO VIEWS: Eight images of the abdomen in supine and upright projections were obtained 08/30/20 - no comparisons. Clips compatible with cholecystectomy are noted. There is gas and stool in the rectum. Relatively distended appearing hepatic flexure of the colon is noted with air- fluid levels. There also appears to be distal jejunum/proximal ileal loop with air-fluid levels. The possibility of an early or partial colonic obstruction is difficult to exclude. However, no significant distension of the bowel was noted except at the hepatic flexure. The air-fluid levels could be on the basis of a large amount of fluid intact or possibly a process such as gastroenteritis. No definite free air was identified. IMPRESSION: Air-fluid levels in the right colon which could be on the basis of paralytic ileus due to localized inflammatory process, gastroenteritis or possibly simply fluid intake. With the slightly distended appearance, however, followup may be warranted especially with an additional loop of mid to distal small bowel showing air-fluid levels. Depending upon clinical course, followup abdomen x-ray or possibly CT may be helpful. [id number]
== END 2020-08-31 01:20 | disposition home or self-care (01) ==
LOC: FB.ED 23:08
DX: K59.00 Constipation, unspecified (principal); E86.0 Dehydration; E11.9 Type 2 diabetes mellitus without complications; E03.9 Hypothyroidism, unspecified; Z88.0 Allergy status to penicillin; Z79.82 Long term (current) use of aspirin; Z79.899 Other long term (current) drug therapy
CPT/HCPCS: 36415; 74019; 80048; 85025; 96374; 99283-25; 99284; J2405; J7030

== ENCOUNTER 2022-10-18 06:57 | Day surgery (SDC) | payer MEDICARE ==
[2022-10-18] MEDS ORDERED: Glycopyrrolate 0.2 MG/ML 5 ML MDV IV ONE (06:58)
[2022-10-18] MEDS ORDERED: Propofol 200 MG/20 ML SDV IV ONE (06:58)
[2022-10-18] MEDS ORDERED: Lidocaine 2% 5 ML SDV IV ONE (06:58)
[2022-10-18] MEDS ORDERED: Sodium Chloride 0.9% 10 ML Syringe FLUSH PRN (07:00)
[2022-10-18] MEDS ORDERED: Lactated Ringers 1,000 ML IV SCH (07:00)
[2022-10-18] MEDS ORDERED: Simethicone Drops 40 MG/0.6 ML 30 ML Bottle PO ONE (09:05)
== END 2022-10-18 10:46 | disposition home or self-care (01) ==
LOC: FB.SDS 06:57
PROVIDERS: ATTEND Surgery
DX: D12.2 Benign neoplasm of ascending colon (principal); D12.9 Benign neoplasm of anus and anal canal; K57.30 Diverticulosis of large intestine without perforation or abscess without bleeding; K58.9 Irritable bowel syndrome, unspecified; E11.9 Type 2 diabetes mellitus without complications; Z86.010 Personal history of colon polyps; Z87.891 Personal history of nicotine dependence; Z88.0 Allergy status to penicillin; Z79.84 Long term (current) use of oral hypoglycemic drugs
CPT/HCPCS: 00811; 45384; 45385; 82947; 88305; A9270; J2704; J3490; J7120

== ENCOUNTER 2024-06-19 16:41 | Emergency (ER) | payer MEDICARE ==
[2024-06-19] MEDS ORDERED: Sodium Chloride 0.9% 10 ML Syringe FLUSH PRN (16:54)
[2024-06-19 17:15] LABS: BLOOD UREA NITROGEN,BUN 13 mg/dL (7-18); BUN/CREATININE RATIO 9.3 (9-20); CALCIUM 8.8 mg/dL (8.6-10.2); CARBON DIOXIDE,CO2 28 mmol/L (21-32); CHLORIDE,CL 104 mmol/L (100-110); CREATININE 1.4 mg/dL (0.55-1.02); ESTIMATED GFR 39 mL/min (>60); GLUCOSE RANDOM 193 mg/dL (80-116); HEMOGLOBIN 13.3 g/dL (11.4-15.5); MEAN PLATELET VOLUME 7.1 fL (7.1-12.4); POTASSIUM,K 3.6 mmol/L (3.5-5.3); SODIUM,NA 143 mmol/L (135-145)
[2024-06-19 17:17] LABS: BASOPHILS ABSOLUTE AUTO 0.1 x10-3/uL (0.0-0.1); BASOPHILS PERCENT AUTO 0.8 % (0.2-1.5); EOSINOPHILS ABSOLUTE AUTO 0.1 x10-3/uL (0.0-0.8); EOSINOPHILS PERCENT AUTO 1.1 % (0.6-8.1); HEMATOCRIT 39.7 % (34.2-48.2); LYMPHOCYTES ABSOLUTE AUTO 1.7 x10-3/uL (1.0-4.4); LYMPHOCYTES PERCENT AUTO 21.5 % (18.4-52.1); MEAN CORPUSCULAR HEMOGLOBIN 31.1 pg (23.9-33.9); MEAN CORPUSCULAR HGB CONC 33.5 g/dL (31.9-34.8); MEAN CORPUSCULAR VOLUME 92.7 fL (76.7-100.5); MONOCYTES ABSOLUTE AUTO 0.5 x10-3/uL (0.3-1.0); MONOCYTES PERCENT AUTO 6.8 % (4.4-15.7); NEUTROPHILS ABSOLUTE AUTO 5.5 x10-3/uL (1.5-6.3); NEUTROPHILS PERCENT AUTO 69.8 % (30.8-76.2); PLATELET COUNT,PLT 262 x10(3)uL (151-488); RED BLOOD CELL COUNT 4.29 x10(6)uL (3.60-5.20); RED CELL DISTRIBUTION WIDTH 15.4 % (12.3-16.5); WHITE BLOOD CELL COUNT,WBC 7.9 x10-3/uL (3.0-10.3)
[2024-06-19 17:21] LABS: PTT,PARTIAL THROMBOPLSTIN TIME 25.8 SECONDS (24.4-33.2)
[2024-06-19 17:25] LABS: PROTHROMBIN TIME 10.4 sec (9.0-11.1)
[2024-06-19 17:26] LABS: A/G RATIO 1.1; ALANINE AMINOTRANSFERASE,ALT 17 U/L (12-36); ALBUMIN 3.8 g/dL (3.2-4.6); ALKALINE PHOSPHATASE 158 IU/L (56-112); ASPARTATE AMNIOTRANSFERASE,AST 13 IU/L (5-25); BILIRUBIN TOTAL 0.7 mg/dL (0.1-1.3); PROTEIN TOTAL,TP 7.4 g/dL (6.0-8.0)
[2024-06-19 17:28] LABS: TROPONIN I 7.9 pg/mL (4.0-60.3)
[2024-06-19] MEDS: Iopamidol 755 Mg/ML 100 ML Bottle IV SCH (17:47)
[2024-06-19 17:54] LABS: BILIRUBIN,URINE NEGATIVE (NEGATIVE); GLUCOSE,URINE NORMAL (NORMAL); KETONES,URINE NEGATIVE (NEGATIVE); LEUKOCYTE ESTERASE,URINE LARGE (NEGATIVE); NITRITE,URINE POSITIVE (NEGATIVE); OCCULT BLOOD,URINE NEGATIVE (NEGATIVE); PROTEIN,URINE TRACE mg/dL (NEGATIVE); UROBILINOGEN,URINE NORMAL (NEGATIVE)
[2024-06-19 17:58] LABS: APPEARANCE,URINE SLIGHTLY CLOUDY (CLEAR); COLOR,URINE YELLOW (YELLOW); RBC,URINE 0-5 (0-5); SQUAMOUS EPITHELIAL CELLS,UR FEW (NS,R,O); WBC,URINE 20-30 (0-5)
[2024-06-19 17:59] LABS: BACTERIA,URINE MODERATE (NS)
== END 2024-06-19 19:06 | disposition home or self-care (01) ==
LOC: FB.ED 16:41
DX: R91.1 Solitary pulmonary nodule (principal); R59.0 Localized enlarged lymph nodes; I10 Essential (primary) hypertension; E78.00 Pure hypercholesterolemia, unspecified; J44.9 Chronic obstructive pulmonary disease, unspecified; E11.9 Type 2 diabetes mellitus without complications; E03.9 Hypothyroidism, unspecified; Z87.891 Personal history of nicotine dependence; Z90.49 Acquired absence of other specified parts of digestive tract; Z88.0 Allergy status to penicillin; Z79.82 Long term (current) use of aspirin; Z79.890 Hormone replacement therapy; Z79.899 Other long term (current) drug therapy
CPT/HCPCS: 71275; 74177; 80053; 81001; 83690; 83880; 84484; 85025; 85610; 85730; 87086; 87088; 87186; 93005; 99285; Q9967

== ENCOUNTER 2024-08-12 10:01 | Emergency (ER) | payer MEDICARE ==
[2024-08-12 10:59] LABS: BASOPHILS PERCENT AUTO 0.4 % (0.2-1.5); EOSINOPHILS PERCENT AUTO 5.2 % (0.6-8.1); HEMOGLOBIN 11.8 g/dL (11.4-15.5); LYMPHOCYTES ABSOLUTE AUTO 0.4 x10-3/uL (1.0-4.4); LYMPHOCYTES PERCENT AUTO 43.1 % (18.4-52.1); MEAN CORPUSCULAR HEMOGLOBIN 30.5 pg (23.9-33.9); MEAN CORPUSCULAR HGB CONC 33.8 g/dL (31.9-34.8); MEAN CORPUSCULAR VOLUME 90.3 fL (76.7-100.5); MEAN PLATELET VOLUME 6.9 fL (7.1-12.4); MONOCYTES ABSOLUTE AUTO 0.1 x10-3/uL (0.3-1.0); MONOCYTES PERCENT AUTO 7.5 % (4.4-15.7); NEUTROPHILS ABSOLUTE AUTO 0.4 x10-3/uL (1.5-6.3); NEUTROPHILS PERCENT AUTO 43.8 % (30.8-76.2); PLATELET COUNT,PLT 108 x10(3)uL (151-488); RED BLOOD CELL COUNT 3.88 x10(6)uL (3.60-5.20)
[2024-08-12 11:03] LABS: BLOOD UREA NITROGEN,BUN 24 mg/dL (7-18); BUN/CREATININE RATIO 17.1 (9-20); CALCIUM 8.7 mg/dL (8.6-10.2); CARBON DIOXIDE,CO2 25 mmol/L (21-32); CHLORIDE,CL 101 mmol/L (100-110); CREATININE 1.4 mg/dL (0.55-1.02); EST CRCL DRUG DOSING (CG) 33.24 mL/min; ESTIMATED GFR 39 mL/min (>60); GLUCOSE RANDOM 127 mg/dL (80-116); POTASSIUM,K 3.2 mmol/L (3.5-5.3); SODIUM,NA 139 mmol/L (135-145)
[2024-08-12 11:06] LABS: WHITE BLOOD CELL COUNT,WBC 0.9 x10-3/uL (3.0-10.3)
[2024-08-12 11:10] LABS: A/G RATIO 0.7; ALANINE AMINOTRANSFERASE,ALT 44 U/L (12-36); ALBUMIN 2.9 g/dL (3.2-4.6); ALKALINE PHOSPHATASE 102 IU/L (56-112); ASPARTATE AMNIOTRANSFERASE,AST 35 IU/L (5-25); BILIRUBIN TOTAL 0.6 mg/dL (0.1-1.3); MAGNESIUM 1.8 mg/dL (1.8-2.5); PROTEIN TOTAL,TP 7.2 g/dL (6.0-8.0)
[2024-08-12] MEDS: Sodium Chloride 0.9% 1,000 ML IV ONE (11:13)
[2024-08-12 11:31] LABS: BILIRUBIN,URINE NEGATIVE (NEGATIVE); COLOR,URINE YELLOW (YELLOW); GLUCOSE,URINE NORMAL (NORMAL); KETONES,URINE NEGATIVE (NEGATIVE); LEUKOCYTE ESTERASE,URINE NEGATIVE (NEGATIVE); NITRITE,URINE NEGATIVE (NEGATIVE); OCCULT BLOOD,URINE NEGATIVE (NEGATIVE); PROTEIN,URINE NEGATIVE (NEGATIVE); UROBILINOGEN,URINE NORMAL (NEGATIVE)
[2024-08-12 11:32] LABS: APPEARANCE,URINE CLEAR (CLEAR); RBC,URINE 0-5 (0-5); SQUAMOUS EPITHELIAL CELLS,UR RARE (NS,R,O); WBC,URINE 0-5 (0-5)
[2024-08-12] MEDS: Potassium Chloride 20 MEQ Tab.ER PO ONE (11:57)
[2024-08-12] MEDS: Acetaminophen 500 MG Tab PO ONE (12:20)
== END 2024-08-12 13:40 | disposition home or self-care (01) ==
LOC: FB.ED 10:01
DX: R19.7 Diarrhea, unspecified (principal); E86.0 Dehydration; E87.6 Hypokalemia; D70.1 Agranulocytosis secondary to cancer chemotherapy; I10 Essential (primary) hypertension; J44.9 Chronic obstructive pulmonary disease, unspecified; E78.00 Pure hypercholesterolemia, unspecified; E11.9 Type 2 diabetes mellitus without complications; E03.9 Hypothyroidism, unspecified; Z90.49 Acquired absence of other specified parts of digestive tract; Z87.891 Personal history of nicotine dependence; Z88.0 Allergy status to penicillin; Z79.82 Long term (current) use of aspirin; Z79.890 Hormone replacement therapy; Z79.899 Other long term (current) drug therapy
CPT/HCPCS: 36415; 80053; 81001; 83605; 83735; 85025; 86140; 87086; 87088; 87186; 87230; 96360; 99284; A9270; J7030

== ENCOUNTER 2024-09-10 22:46 | Emergency (ER) | payer MEDICARE ==
[2024-09-10 23:31] LABS: HEMATOCRIT 26.3 % (34.2-48.2); HEMOGLOBIN 8.8 g/dL (11.4-15.5); MEAN CORPUSCULAR HEMOGLOBIN 30.9 pg (23.9-33.9); MEAN CORPUSCULAR HGB CONC 33.5 g/dL (31.9-34.8); MEAN CORPUSCULAR VOLUME 92.3 fL (76.7-100.5); MEAN PLATELET VOLUME 7.3 fL (7.1-12.4); PLATELET COUNT,PLT 85 x10(3)uL (151-488); RED BLOOD CELL COUNT 2.85 x10(6)uL (3.60-5.20); RED CELL DISTRIBUTION WIDTH 16.3 % (12.3-16.5); WHITE BLOOD CELL COUNT,WBC 10.5 x10-3/uL (3.0-10.3)
[2024-09-10 23:35] LABS: BLOOD UREA NITROGEN,BUN 18 mg/dL (7-18); BUN/CREATININE RATIO 12.9 (9-20); CALCIUM 8.6 mg/dL (8.6-10.2); CARBON DIOXIDE,CO2 26 mmol/L (21-32); CHLORIDE,CL 102 mmol/L (100-110); CREATININE 1.4 mg/dL (0.55-1.02); EST CRCL DRUG DOSING (CG) 33.24 mL/min; ESTIMATED GFR 39 mL/min (>60); GLUCOSE RANDOM 174 mg/dL (80-116); POTASSIUM,K 4.2 mmol/L (3.5-5.3); SODIUM,NA 141 mmol/L (135-145)
[2024-09-10 23:38] LABS: BASE EXCESS VENOUS,POC 0 mmol/L (-2 - 3+); PCO2 VENOUS,POC 35 mmHg (41-51); PH VENOUS,POC 7.45 pH Units (7.32-7.43)
[2024-09-10 23:41] LABS: A/G RATIO 0.8; ALANINE AMINOTRANSFERASE,ALT 17 U/L (12-36); ALBUMIN 3.1 g/dL (3.2-4.6); ALKALINE PHOSPHATASE 182 IU/L (56-112); ASPARTATE AMNIOTRANSFERASE,AST 17 IU/L (5-25); BILIRUBIN TOTAL 0.4 mg/dL (0.1-1.3); MAGNESIUM 1.5 mg/dL (1.8-2.5)
[2024-09-10 23:46] LABS: BAND PERCENT MAN 1 % (0-6); BASOPHILS PERCENT MAN 1 % (0-2); EOSINOPHILS PERCENT MAN 1 % (0-5); LYMPHOCYTES PERCENT MAN 15 % (13-37); METAMYELOCYTE PERCENT MAN 2 % (0-0); MONOCYTES PERCENT MAN 3 % (4-12); MYELOCYTE PERCENT MAN 1 % (0-0); SEG NEUTROPHILS PERCENT MAN 76 % (46-82)
[2024-09-10 23:48] LABS: TROPONIN I 8.6 pg/mL (4.0-60.3)
[2024-09-10 23:49] LABS: C-REACTIVE PROTEIN 3.8 mg/dL (<0.50)
[2024-09-11] MEDS ORDERED: Sodium Chloride 0.9% 10 ML Syringe FLUSH PRN (00:45)
[2024-09-11] MEDS: Iopamidol 755 Mg/ML 100 ML Bottle IV SCH (01:35)
[2024-09-11] MEDS ORDERED: Acetaminophen 500 MG Tab PO ONE (03:11)
[2024-09-11] MEDS: Sodium Chloride 0.9% 1,000 ML IV SCH (03:11)
[2024-09-11] MEDS: Sodium Chloride 0.9% 500 ML IV ONE (03:12)
[2024-09-11] MEDS: Cefepime 2 GM Vial IVPUSH ONE (03:14)
[2024-09-11] MEDS: VANCOmycin 2 GM/400 ML 2 GM in Premix Bag 1 BAG IV ONE (03:24)
== END 2024-09-11 05:15 ==
LOC: FB.ED 22:46
DX: J96.01 Acute respiratory failure with hypoxia (principal); J18.9 Pneumonia, unspecified organism; C34.90 Malignant neoplasm of unspecified part of unspecified bronchus or lung; D84.9 Immunodeficiency, unspecified; I10 Essential (primary) hypertension; E78.00 Pure hypercholesterolemia, unspecified; J44.9 Chronic obstructive pulmonary disease, unspecified; E11.9 Type 2 diabetes mellitus without complications; E03.9 Hypothyroidism, unspecified; Z88.0 Allergy status to penicillin; Z79.890 Hormone replacement therapy; Z79.82 Long term (current) use of aspirin; Z79.84 Long term (current) use of oral hypoglycemic drugs; Z86.16 Personal history of COVID-19
CPT/HCPCS: 36415; 71045; 71275; 80053; 83605; 83735; 83880; 84484; 85025; 85379; 86140; 87040; 87428; 93005; 96365; 96366; 96375; 99285; A9270; J0692; J3372; J7030; Q9967

== ENCOUNTER 2024-10-19 10:18 | Emergency (ER) | payer MEDICARE, OTHER ==
[2024-10-19 11:04] LABS: MEAN CORPUSCULAR HEMOGLOBIN 34.3 pg (23.9-33.9); MEAN CORPUSCULAR HGB CONC 34.7 g/dL (31.9-34.8); MEAN CORPUSCULAR VOLUME 98.8 fL (76.7-100.5); MEAN PLATELET VOLUME 10.8 fL (7.1-12.4); RED BLOOD CELL COUNT 1.54 x10(6)uL (3.60-5.20); RED CELL DISTRIBUTION WIDTH 20.5 % (12.3-16.5)
[2024-10-19 11:07] LABS: BLOOD UREA NITROGEN,BUN 22 mg/dL (7-18); BUN/CREATININE RATIO 13.8 (9-20); CALCIUM 8.5 mg/dL (8.6-10.2); CARBON DIOXIDE,CO2 24 mmol/L (21-32); CHLORIDE,CL 103 mmol/L (100-110); CREATININE 1.6 mg/dL (0.55-1.02); ESTIMATED GFR 33 mL/min (>60); GLUCOSE RANDOM 185 mg/dL (80-116); POTASSIUM,K 4.9 mmol/L (3.5-5.3); SODIUM,NA 137 mmol/L (135-145)
[2024-10-19 11:10] LABS: INR 1.1 (1.00-1.24); PROTHROMBIN TIME 11.3 sec (9.0-11.1)
[2024-10-19 11:12] LABS: HEMATOCRIT 15.2 % (34.2-48.2); HEMOGLOBIN 5.3 g/dL (11.4-15.5); WHITE BLOOD CELL COUNT,WBC 0.5 x10-3/uL (3.0-10.3)
[2024-10-19 11:13] LABS: A/G RATIO 0.6; ALANINE AMINOTRANSFERASE,ALT 14 U/L (12-36); ALBUMIN 2.7 g/dL (3.2-4.6); ALKALINE PHOSPHATASE 133 IU/L (56-112); ASPARTATE AMNIOTRANSFERASE,AST 15 IU/L (5-25); BILIRUBIN TOTAL 0.8 mg/dL (0.1-1.3); MAGNESIUM 1.3 mg/dL (1.8-2.5); PLATELET COUNT,PLT 3 x10(3)uL (151-488); PROTEIN TOTAL,TP 6.9 g/dL (6.0-8.0)
[2024-10-19 11:31] LABS: LYMPHOCYTES PERCENT MAN 56 % (13-37); MONOCYTES PERCENT MAN 12 % (4-12); SEG NEUTROPHILS PERCENT MAN 32 % (46-82)
[2024-10-19 11:32] LABS: ANISOCYTOSIS FEW
== END 2024-10-19 12:15 ==
LOC: FB.ED 10:18
DX: R04.0 Epistaxis (principal); D61.818 Other pancytopenia; I10 Essential (primary) hypertension; E78.00 Pure hypercholesterolemia, unspecified; J44.9 Chronic obstructive pulmonary disease, unspecified; E11.9 Type 2 diabetes mellitus without complications; E03.9 Hypothyroidism, unspecified; Z86.16 Personal history of COVID-19; Z90.49 Acquired absence of other specified parts of digestive tract; Z79.899 Other long term (current) drug therapy; Z79.82 Long term (current) use of aspirin; Z79.890 Hormone replacement therapy; Z88.0 Allergy status to penicillin
CPT/HCPCS: 36415; 80053; 83735; 85025; 85610; 99284